=== PATIENT | female | born 1965 | race Caucasian/White ===

== ENCOUNTER → 2023-09-06 15:48 | Outpatient (REF) | payer BC, SELFPAY | LOC: HWRAD 15:48 | PROVIDERS: ATTENDING PHYSICIAN Internal Medicine; FAMILY PHYSICIAN Nurse Practitioner | DX: M25.551 Pain in right hip (principal) | CPT/HCPCS: 73502 ==

== ENCOUNTER 2024-08-25 07:16 | Emergency (ER) | payer BC, SELFPAY ==
[2024-08-25 07:26] VITALS: BP 162/96
--- NOTE | 2024-08-25 08:19 | ED.GENMED ---
History of Present Illness
General
Chief Complaint: Fall
Source: patient
Exam Limitations: none
Time Seen by Provider: 08/25/24 08:07
Nursing documentation reviewed up to this point in time: agreed with
History of Present Illness
History of Present Illness:
59 yr old female presents to the ER for evaluation. Patient reports around 6 AM this morning she tripped over her phone cord and landed directly on her right chest into her bed frame. She complains of pain with taking a deep breath she reports
she is very sore to even move her arms. She denies any abdominal pain. She is not on any blood thinners.
SHe denies any shortness of breath.
She did not take anything for discomfort. No head injury.
Review of Systems
Review of Systems
Allergies reviewed?: Yes
All Other Systems: ROS reviewed and negative except as documented in HPI and ROS
Constitutional: Reports no symptoms; Denies fever, fatigue or chills
Respiratory: Reports other (right sided chest pain ); Denies trouble breathing
Cardiac: Reports no symptoms
ABD/GI: Reports no symptoms; Denies abdominal pain, nausea or vomiting
: Reports no symptoms
Musculoskeletal: Reports no symptoms; Denies neck pain
Skin: Reports no symptoms
Neurological: Denies headache
Psychiatric: Reports no symptoms
Phy Exam
General Physical Exam
General Presentation: no apparent distress
General age: appears stated age
General Skin: warm and dry
General Habitus: normal
General Mental: alert
General Hydration: appears well hydrated
Cardiovascular Exam
Cardiovascular Exam: regular rate/rhythm, no murmur and normal peripheral pulses
Pulmonary Exam
Pulmonary Exam: lungs clear and no respiratory distress
Gastrointestinal Exam
Gastrointestinal Exam: non tender and soft
Neurological Exam
Neurological Exam: alert and oriented x3
Musculoskeletal Exam
Musculoskeletal Exam: full ROM
Skin Exam
Skin Exam: normal color and warm/dry
Psychiatric Exam
Psychiatric Exam: normal mood/affect
Course
Orders/Labs/Results
Orders:
Orders
08/25/24 07:55
Chest [CR Chest - 2 Views ] Urgent
Comment:
Reason For Exam: direct fall on chest
08/25/24 08:14
0.9% Sodium Chloride 1000 ml [Nss] 1,000 ml IV BOLUS
Ketorolac [Toradol] 15 mg IV NOW STA
08/25/24 08:16
CT Chest With Iv Contrast Urgent
Comment:
Reason For Exam: trauma
Cardiac Monitoring- Treatment ONCE
08/25/24 08:47
Complete Blood Count/With Diff Urgent
Comprehensive Metabolic Panel Urgent
Abnormal Lab Results
08/25/24
08:47
MCH 31.1 H pg
(27.0-31.0)
MPV 10.9 H fL
(7.4-10.4)
Abs Immat Gran (auto) 0.1 H 10^3/uL
(0-0.05)
Absolute Monos (auto) 0.8 H 10^3/uL
(0.1-0.6)
Immature Gran % 0.7 H %
(0-0.5)
Lymphocytes % 20.1 L %
(20.5-51.1)
Chloride 109 H mmol/L
(98-107)
BUN 19 H mg/dl
(7-17)
08/25/24 08:47
08/25/24 08:47
Vital Signs
Initial and Last Documented VS:
Initial Vital Signs
Temp Pulse Resp BP Pulse Ox
36.9 C 71 14 162/96 100
08/25/24 07:26 08/25/24 07:26 08/25/24 07:26 08/25/24 07:26 08/25/24 07:26
Last Documented Vital Signs
Temp Pulse Resp BP Pulse Ox
36.9 C 71 14 152/84 100
08/25/24 07:26 08/25/24 07:26 08/25/24 07:26 08/25/24 09:35 08/25/24 07:26
MDM/Problems Addressed
Differential Diagnosis Includes:
Not limited to contusion less likely rib fracture pulmonary contusion less likely
MDM/Problems Addressed:
symptoms are consistent w/ soft tissue contusion.
Patient received Toradol here feeling better will DC with ice Ibuprofen /tylenol with outpt f/u
*Radiology
Radiology exam reviewed: radiology read reviewed
*Pulse Oximetry
Patient hypoxic: no
*Critical Care Note
Total Time (30-74mins, 75-104mins- exclusive of procedures): Not Applicable
ED Attending Note
-
Portions of this chart may have been created with voice recognition software.� Occasional wrong word or��sound alike� substitutions may have occurred due to the inherent limitations of voice recognition software.
Discharge Plan
Departure
Patient Disposition: Home (Routine Discharge)
Date of Disposition: 08/25/24
Time of Disposition: 11:38
Patient with high blood pressure during this ER visit?: Yes
Condition: Fair
Covid-19: Not Applicable
Discharge Problem:
Contusion
Instructions: Contusion (DC), BLOOD PRESSURE
Referrals:
Richie Hyman CRNP [Family Provider]
Activity Restrictions/Additional Instructions:
As discussed ice affected area for the next 24 -48 hours 20 minutes at a time several times a day. Be sure to do deep breathing exercises, taking several deep breaths every hour.
You may then try warm moist heat. Please alternate between ibuprofen and Tylenol for discomfort. Follow-up with your family doctor in the next 2 days. Return if any worsening of symptoms.
Interventions
Interventions:
*Risk Screen - Suicide Last Done: 08/25/24 07:28
*General Assessment Last Done: 08/25/24 07:16
*Neglect/Abuse Screening Last Done: 08/25/24 07:28
*ED- Fall Risk Assessment Last Done: 08/25/24 07:16
ED-Musculoskeletal Assessment Last Done: 08/25/24 07:16
ED- Neurological Assessment Last Done: 08/25/24 07:16
ED-Skin Assessment Last Done: 08/25/24 07:16
Discharge Date and Time
Print Language: [id number]
[2024-08-25 09:12] LABS: % Basophils 0.5 % (0-2); % Eosinophils 3.1 % (0-6); % Immature Granulocytes 0.7 % (0-0.5); % Lymphocytes 20.1 % (20.5-51.1); % Monocytes 8.7 % (1.7-9.3); % Neutrophils 66.9 % (42.2-75.2); Absolute Basophils 0.1 10^3/uL (0-0.2); Absolute Eosinophils 0.3 10^3/uL (0-0.7); Absolute Immature Granulocytes 0.1 10^3/uL (0-0.05); Absolute Lymphocytes 1.9 10^3/uL (1.2-3.4); Absolute Monocytes 0.8 10^3/uL (0.1-0.6); Absolute Neutrophils 6.4 10^3/uL (1.4-6.5); Hematocrit 40.4 % (37.0-47.0); Hemoglobin 14.1 g/dL (12.0-16.0); Mean Corp Hgb Conc. 34.9 g/dL (33.0-37.0); Mean Corpuscular Hgb 31.1 pg (27.0-31.0); Mean Platelet Volume 10.9 fL (7.4-10.4); Nucleated Red Blood Cells % 0 %; Platelet Count 247 10^3/uL (130-400); Red Blood Cell Count 4.54 10^6/uL (4.20-5.40); Red Cell Dist. Width 12.4 % (11.5-14.5); White Blood Cell Count 9.6 10^3/uL (4.8-10.8)
[2024-08-25] MEDS: TORADOL 15 MG IV (09:19)
[2024-08-25] MEDS: NSS 1000 IV (09:21)
[2024-08-25 09:35] VITALS: BP 152/84
[2024-08-25 09:39] LABS: ALT (SGPT) 23 U/L (0-35); AST (SGOT) 28 U/L (14-36); Albumin 4.7 g/dl (3.5-5.0); Alkaline Phosphatase 51 U/L (38-126); Blood Urea Nitrogen 19 mg/dl (7-17); Calcium 9.4 mg/dl (8.4-10.2); Carbon Dioxide 25 mmol/L (22-30); Chloride 109 mmol/L (98-107); Glucose 91 mg/dl (70-99); Sodium 141 mmol/L (135-145); Total Bilirubin 0.6 mg/dl (0.2-1.3); Total Protein 7.1 g/dl (6.3-8.2); eGFR > 60.00
== END 2024-08-25 12:00 | disposition home or self-care (01) ==
LOC: EMR 07:16
PROVIDERS: Nurse Practitioner; EMERGENCY PHYSICIAN Emergency Medicine
DX: S20.211A Contusion of right front wall of thorax, initial encounter (principal); W01.190A Fall on same level from slipping, tripping and stumbling with subsequent striking against furniture, initial encounter
CPT/HCPCS: 99284; 96374; 96361; 71046; 71260; 80053; 85025; Q9967

== ENCOUNTER → 2024-10-09 08:22 | Outpatient (REF) | payer BC, SELFPAY | LOC: HWRAD 08:22 | PROVIDERS: ATTENDING PHYSICIAN Internal Medicine | DX: M79.672 Pain in left foot (principal) | CPT/HCPCS: 73630 ==

== ENCOUNTER → 2025-03-03 12:04 | Outpatient (REF) | payer BC, SELFPAY | LOC: RAD 12:04 | DX: M79.675 Pain in left toe(s) (principal) | CPT/HCPCS: 73630 ==